=== PATIENT | male | born 1965 | race Caucasian/White ===

== ENCOUNTER 2025-01-25 08:35 | Day surgery (SDC) | payer MEDICARE, OTHER ==
[2025-01-25] MEDS ORDERED: FENTANYL CITRATE 100 MCG/2 ML AMPUL IV PRN (10:00)
[2025-01-25] MEDS ORDERED: ONDANSETRON 4 MG/2 ML VIAL IV PRN (10:00)
[2025-01-25] MEDS ORDERED: EPHEDRINE SULFATE 50 MG/ML AMPUL IV PRN (10:00)
[2025-01-25] MEDS ORDERED: PROPOFOL 200 MG/20 ML BOTTLE ONE (11:04)
[2025-01-25] MEDS ORDERED: LABETALOL HCL 100 MG/20 ML VIAL ONE (11:31)
[2025-01-25 11:36] VITALS: BP 173/103
[2025-01-25] MEDS: LABETALOL HCL 100 MG/20 ML VIAL IV PRN (11:36)
[2025-01-25 12:25] VITALS: TEMP 97.9
== END 2025-01-25 12:25 | disposition home or self-care (01) ==
LOC: DS 08:35
PROVIDERS: ATTEND Surgery
DX: R19.4 Change in bowel habit (principal); K64.8 Other hemorrhoids; D12.3 Benign neoplasm of transverse colon; K57.32 Diverticulitis of large intestine without perforation or abscess without bleeding; K64.4 Residual hemorrhoidal skin tags; K57.30 Diverticulosis of large intestine without perforation or abscess without bleeding; I10 Essential (primary) hypertension; E11.9 Type 2 diabetes mellitus without complications; F17.200 Nicotine dependence, unspecified, uncomplicated; Z93.3 Colostomy status; Z79.899 Other long term (current) drug therapy; Z98.890 Other specified postprocedural states; Z88.8 Allergy status to other drugs, medicaments and biological substances; Z90.49 Acquired absence of other specified parts of digestive tract
CPT/HCPCS: 45380; 71045; 82962; 88305; J3490; J7120; A4663